=== PATIENT | male | born 1995 ===

== ENCOUNTER 2022-01-14 14:06 | Outpatient (CLI) | payer OTHER, SELFPAY ==
[2022-01-14 21:33] LABS: C Reactive Protein* 0.5 mg/dL (0.5-1.0)
== END 2022-01-14 14:07 | disposition home or self-care (01) ==
PROVIDERS: Visit Provider Emergency Medicine
DX: R59.0 Localized enlarged lymph nodes (principal)
CPT/HCPCS: 86140